=== PATIENT | female | born 1965 | race African-American/Black ===

== ENCOUNTER 2023-11-06 11:36 | Emergency (ER) | payer OTHER ==
[2023-11-06 12:17] LABS: #Basophils Less than 0.03 10x3/uL (0.0-0.2); #Eosinphils Less than 0.03 10x3/uL (0.0-0.7); %Basophils 0.2 % (0.0-1.0); %Eosinophils 0.2 % (0.0-10.0); %Lymphocytes 8.3 % (21.0-51.0); %Monocytes 5.5 % (0.0-10.0); %Neutrophils 85.5 % (42.0-75.0); Hematocrit 46.1 % (36.0-47.0); Hemoglobin 14.7 g/dL (12.0-16.0); Mean Corpuscular HGB CONC 31.9 g/dL (32.0-36.0); Mean Corpuscular Hemoglobin 32.3 pg (27.0-31.0); Mean Corpuscular Volume 101.3 fL (78.0-98.0); Mean Platelet Volume 9.7 fL (7.4-10.4); Platelet Count 183 10x3/uL (130-400); RBC Distribution Width 12.3 % (11.5-14.5); Red Blood Cell (RBC) Count 4.55 mill/uL (4.20-5.40)
[2023-11-06 12:43] LABS: Troponin I Less than 0.010 ng/mL (< 0.028)
[2023-11-06 12:55] LABS: ALT (SGPT) 12 U/L (8-55); AST (SGOT) 13 U/L (5-34); Albumin 3.3 g/dL (3.5-5.0); Alkaline Phosphatase 49 U/L (40-110); Anion Gap 23 mmol/L (10-20); BUN (Urea Nitrogen) 81 mg/dL (9.8-20.1); Bilirubin, Total 0.8 mg/dL (0.2-1.2); Calc. Creatinine Clearance 0 mL/min (70-130); Calcium 8.9 mg/dL (7.8-10.44); Carbon Dioxide 25 mmol/L (22-29); Chloride 101 mmol/L (98-107); Estimated GFR 3; Globulin 3.6 g/dL (2.4-3.5); Glucose 130 mg/dL (70-105); Potassium 6.9 mmol/L (3.5-5.1); Protein, Total 6.9 g/dL (6.0-8.3); Sodium 142 mmol/L (136-145)
[2023-11-06 15:10] LABS: Anion Gap 22 mmol/L (10-20); BUN (Urea Nitrogen) 84 mg/dL (9.8-20.1); Calc. Creatinine Clearance 0 mL/min (70-130); Carbon Dioxide 24 mmol/L (22-29); Chloride 102 mmol/L (98-107); Critical Call Chemistry NUR.LM21t; Estimated GFR 2; Glucose 105 mg/dL (70-105); Potassium 6.6 mmol/L (3.5-5.1); Sodium 141 mmol/L (136-145)
[2023-11-06 17:18] LABS: HBSAB Concentration 81.31 mIU/mL; HBsAg Index 0.26 S/CO (0-0.99); Hep B Core Total Ab NONREACTIVE (NonReactive); Hep B Core Total Index 0.21 S/CO (0-0.79); Hep B Surf AB REACTIVE (NonReactive); Hep B Surf Ag NONREACTIVE S/CO (NonReactive); Hep C IgG Ab NONREACTIVE S/CO (NonReactive); Hep C Index 0.06 S/CO (0-0.79)
== END 2023-11-06 20:50 | disposition home or self-care (01) ==
LOC: ERS 11:36
DX: R42 Dizziness and giddiness (principal); E87.5 Hyperkalemia; J44.9 Chronic obstructive pulmonary disease, unspecified; I10 Essential (primary) hypertension; N28.9 Disorder of kidney and ureter, unspecified
CPT/HCPCS: 70450; 80048; 80053; 84484; 85025; 86704; 86706; 86803; 87340; 93005; 99284; Q0162; 36415; 90935; G0257